=== PATIENT | male | born 2000 | race African-American/Black ===

== ENCOUNTER → 2021-02-20 00:59 | Outpatient (CLI) | payer BC, SELFPAY ==
[2021-02-21 02:02] LABS: SARS-CoV-2 RNA PCR Negative
== END ==
PROVIDERS: Visit Provider Otolaryngology
DX: Z01.812 Encounter for preprocedural laboratory examination (principal); Z20.822 Contact with and (suspected) exposure to COVID-19
CPT/HCPCS: C9803; U0003; U0005

== ENCOUNTER 2021-05-08 01:53 | Day surgery (SDC) | payer BC, SELFPAY ==
--- NOTE | 2021-05-07 08:28 | PM.IMHP ---
H&P: HPI History of Present Illness Date/Time: 05/07/21 08:28 Chief Complaint: ear keloids bilateral Narrative: patient presents for planned surgical procedure. No change in symptoms no change in medical history. Review of Systems Constitutional: Constitutional: Denies fatigue, Denies fever(s) and Denies lethargy Eyes: Eyes: Denies blurry vision and Denies change in vision ENT: Reports as per HPI Cardiovascular: Cardiovascular: Denies chest pain Respiratory: Respiratory: Denies cough Endocrine: Endocrine: Denies fatigue Hematologic/Lymphatic: Hematologic/Lymphatic: Denies easy bleeding, Denies easy bruising and Denies lymphadenopathy Allergic/Immunologic: Allergic/Immunologic: Denies seasonal rhinorrhea [facility] Past Medical History Medical History (Updated 02/23/21 @ 07:13 by Lalo Ivy DO) Asthma Surgical History Surgical History (Updated 02/23/21 @ 07:13 by Lalo Ivy DO) History of tonsillectomy Family History Family History Mother Diabetes mellitus Hypertension Grandparent Diabetes mellitus Hypertension Social History Social History Smoking status: Never smoker Second hand tobacco smoke exposure: No Alcohol intake: never Substance use: never Substance use type: does not use Spiritual care concerns: No Meds Home Medications and Allergies Home Medications Medication Instructions Recorded Confirmed Type albuterol 90 mcg INHALATION Q4-6H PRN 02/15/21 02/15/21 History Allergies Allergy/AdvReac Type Severity Reaction Status Date / Time amoxicillin AdvReac Mild RASH Verified 02/15/21 13:16 Exam Const: General: cooperative, healthy appearing, comfortable, well developed and alert HENMT: Head: normal to inspection, normocephalic and atraumatic Ears: hearing grossly normal bilaterally, external ears abnormal ( Bilateral earlobe keloids), TM's normal bilaterally and EAC's normal General nose exam: Normal external nose present, Normal nares present, No nasal polyps present, Normal nasal mucous membranes and turbinates present and Normal septum present Face and sinus: normal facial exam Mouth: Yes Normal oral and palatal mucosa present, Yes lip normal, Yes tongue normal, Yes oropharynx normal and Yes moist mucous membranes Teeth and gingiva: dentition normal and gingiva normal Throat: posterior oropharynx normal, tonsils normal and uvula midline Eyes: General: appearance normal, both eyes and all related structures Periorbital: periorbital findings normal Eyelids: eyelids normal Conjunctivae: conjunctivae normal Sclera: sclerae normal Neck: Neck: normal visual inspection, full ROM and no lymphadenopathy Thyroid: thyroid normal Lymphatic: no lymphadenopathy noted Resp: Effort & Inspection: normal respiratory effort and able to speak in complete sentences Cardio: Jugular venous distension: no JVD Neuro: Cranial nerves: Yes CN's II-XII intact bilaterally Assessment and Plan Assessment and plan (1) Cheloid of skin: Code(s): L91.0 - Hypertrophic scar Status: Acute Assessment and Plan: Plan is for the operating room for bilateral resection of earlobe keloids. Also steroid injection. Total operative time 1:00 hour. Risks were discussed in great detail the largest risk which is the regrowth of keloids and change in cosmesis. Patient voiced understanding of this risk and agreed other risks include bleeding infection damage to surrounding structures and change in cosmesis especially in the left earlobe given the size of the keloid. Patient voiced understanding of this risk as well. He understands that he will need to come back 2-3 times on a weekly interval for steroid injection.
--- NOTE | 2021-05-07 09:55 | PC.NURSE ---
Report to the Outpatient Waiting Room, entrance under the green pavilion located off [facility], at time _0800 on date __05/08/21 . OR Time: ___999 . - You and your visitor will be asked a series of questions to screen for COVID 19 for your protection. - A mask is required within the hospital. Preoperative COVID Testing Requirements: No COVID Test needed if: (proof is required; if not received patient will have Rapid Test prior to entry) - Patient has received COVID Vaccine at least 14 days prior to procedure date or - Patient has positive COVID test result within last 90 days of surgery date. COVID Test needed if above criteria is not met If not COVID vaccinated a COVID test must be conducted within 72 hours of surgery and patient is asked to isolate self from time of testing until procedure. You will go to the [facility] for your COVID testing. The [facility] is located at the corner of [address] [facility]. You will only be called if COVID results are positive and your surgeon may reschedule your elective surgery date. Patients may have clear liquids (water, carbonated beverages, clear teas, apple juice) until 3 hours prior to surgery with a maximum of 20 ounces. - No food from midnight until time of surgery - Infants may have breast milk until 4 hours before surgery, formula 6 hours prior to surgery. - Children will be allowed to drink immediately following surgery. If applicable, please bring a bottle or sippy cup to assist with drinking. Juice, water, soda, and popsicles are readily available. For infants on formula, please bring formula the day of surgery. Pacifiers are allowed. Take the following medications with a SIP of water the morning of surgery: ____INHALER IF NEEDED Medications to discontinue per physician NONE Date to take last dose Please no make-up, nail greek, hairspray, perfume, deodorant, or body powder the day of surgery. No jewelry (including any body piercings) or valuables the day of surgery, leave them at home. Please take a shower or bath the night before, or the morning of, surgery with an antibacterial soap. Wear comfortable, loose fitting clothing. Children are encouraged to wear pajamas. - Jewelry must be removed prior to entering the operating room. Rings and piercings that are not removed may be cut off. - The hospital will not accept responsibility for valuables. - Please leave all valuables, including medications, at home the day of surgery. If you are going home after surgery, a licensed trailer tank truck driver must drive you home. - NO public transportation without another adult. - We recommend that an adult stay with you for 24 hours following discharge. - We also recommend that you do not drive, make important decision, drink alcoholic beverages, or take any drugs that were not prescribed by your health care provider for at least 24 hours after your discharge time. For Pediatric surgeries, we recommend two adults accompany the child home (only one inside the building at this time). One visitor will be allowed to accompany the patient into the hospital. Patients visitor will be instructed to remain with patient at all times or leave the building. We will allow the visitor to come back to the postoperative area when patient is ready. Follow any additional instructions given to you from your surgeon. Telephone instructions given to __PATIENT and asked if any additional questions and then verbalized understanding. Patient advised to call surgeon office or pre surgery nurse liaison [phone] if any additional questions.
[2021-05-07 09:57] VITALS: BMI 20.1
[2021-05-08] VITALS (9 sets, daily range): BP systolic 107–125; BP diastolic 52–83; PULSE 57–94; RESP 16–21; TEMP 36.2–36.7; O2SAT 99–100; BMI 19.7
--- NOTE | 2021-05-08 07:10 | WPDHPUPDATE1 ---
History and Physical Update Update Date/Time: 05/08/21 07:10 History and Physical has been reviewed, including an updated exam of the patient. There are NO changes in the patient's condition. Risks, benefits, and alternatives have been discussed and questions answered. Patient agrees to proceed with procedure.
[2021-05-08] MEDS: LACTATED RINGERS 1,000 ML 30 ML IV CONT ×2 (08:47→10:20)
--- NOTE | 2021-05-08 08:50 | WPDANESEPPF ---
Anes - Initial Pre Proc Eval Procedure: Operation Date: 05/08/21 10:00 Proposed Procedures p Excision of Bilateral Ear Keloids with Steroid Injection - Rayshawn Lin MD Date/Time: 05/08/21 08:50 Surgeon: Rayshawn Lin MD Pre Op Diagnosis: bilateral ear keloids Patient Data Age: 21 Gender: M Height: 1.78 m Weight: 62.4 kg Last Vital Signs Temp 36.7 C 05/08/21 08:10 Pulse 78 05/08/21 08:10 Resp 16 05/08/21 08:10 BP 125/75 05/08/21 08:10 Pulse Ox 100 05/08/21 08:10 Allergies Allergy/AdvReac Type Severity Reaction Status Date / Time amoxicillin Allergy Mild RASH Verified 05/08/21 08:15 Home Medications Medication Instructions Recorded Confirmed Type albuterol 90 mcg INHALATION Q4-6H PRN 02/15/21 05/08/21 History Patient hx anesthesia problems: none Family hx anesthesia problems: none Results Review: All pre-operative results and documents have been reviewed as part of the pre-operative evaluation. [facility] Past Medical History Medical History Asthma Surgical History Surgical History History of tonsillectomy Family History Family History Mother Diabetes mellitus Hypertension Grandparent Diabetes mellitus Hypertension Social History Social History Smoking status: Never smoker Second hand tobacco smoke exposure: No Alcohol intake: never Substance use: never Substance use type: does not use Living arrangements: with family Spiritual care concerns: No Anes - Eval Final PreProcedure Day of Procedure 05/08/21 08:50 Patient weight: normal Heart: regular rate and rhythm Lungs: clear to auscultation Airway: Mallampati scale class II Neurological: alert and oriented Last oral intake: >/= 8 hours ASA classification: II Emergent: no Anesthetic plan: proceed Anesthesia type and monitoring: general LMA and standard monitoring Results Review: All pre-operative results and documents have been reviewed as part of the pre-operative evaluation. Informed Consent: The patient's anesthetic plan and its attendant risks and benefits were discussed with the patient/family/POA. Questions were solicited and answers provided to the satisfaction of the patient/family/POA.
[2021-05-08] MEDS: ceFAZolin 2 GM/D5W 50 ML 2 GM/50 ML BAG IVPB (09:02)
[2021-05-08] MEDS: BACITRACIN OINTMENT 15 GM TUBE 1 APPLIC TOPICAL (09:36)
--- NOTE | 2021-05-08 10:55 | W.PM.PROC2 ---
Procedure Note - Detailed Date of Procedure 05/08/21 Pre-op Diagnosis bilateral ear keloids Post-op Diagnosis same Procedure Performed Bilateral excision of earlobe keloids , bilateral injection of steroid Surgeon Rayshawn Lin MD Anesthesia general Indications see above Findings keloids significantly grown in size since my last visit with the patient several months ago pureed excise bilaterally because of the size ear lobes are not foreshortened somewhat pointed left shorter than right left partially attached to the neck. Acceptable cosmetic appearance. Description of Procedure patient identified consent verified. Patient brought operating. Time-out performed. general anesthesia induced, LMA secured.Patient prepped and draped for the aforementioned procedure Total 5 cc 1% lidocaine 1 100,000 parts epinephrine injected the bilateral earlobes at the junction of keloid in [place] non fibrous skin. Fifteen blade utilized to remove the keloids deep tissue cleaned of fibrous keloid like tissue. Ears closed using interrupted 5 0 Prolene suture. Seven on the right I believe 9-11 on the left. A total of 1 cc which was 10 mg of Decadron injected into each earlobe. Antibiotic ointment placed over the incision. Total blood loss approximately 2 cc. Patient tolerated the procedure well there no complications. Care the patient given Anesthesiology. Estimated Blood Loss 2 Pathology yes Complications No immediate complications Condition stable Disposition PACU
[2021-05-08] MEDS: fentaNYL CITRATE INJ (*CRX) 100 MCG/2 ML VIAL 25 MCG IV PUSH (11:01)
--- NOTE | 2021-05-08 13:02 | SUR.PHASEII ---
RN called Dr. Lin and he resent the antibiotic to patient's pharmacy from his office.
== END 2021-05-08 12:35 | disposition home or self-care (01) ==
PROVIDERS: Visit Provider Otolaryngology
PROC: (CPT 11442; principal; 2021-05-08 10:00)
DX: L91.0 Hypertrophic scar (principal); J45.909 Unspecified asthma, uncomplicated; Z79.51 Long term (current) use of inhaled steroids
CPT/HCPCS: 11442; 11446; 88304; A9270; J0690; J1100; J2405; J2704; J3010; J7120

== ENCOUNTER 2024-02-17 19:55 | Emergency (ER) | payer BC, SELFPAY ==
[2024-02-17 20:11] VITALS: BP 144/85; PULSE 76; RESP 16; TEMP 36.1; O2SAT 100
--- NOTE | 2024-02-17 20:22 | PC.NURSE ---
MARLEY Maddox notified of pt. and that pt. is a moderate risk. Per PA, no additional interventions at this time. Mom at bedside with pt.
--- NOTE | 2024-02-17 21:34 | PC.NURSE ---
Addendum entered by Joan Chiu RN 02/17/24 21:36: This occurred around 2100 Original Note: Pt visualized leaving with jacket walking towards waiting room by staff. Assume pt LWBS. Told by primary RN that pt was not actively SI. ERP notified.
== END 2024-02-17 21:00 | disposition left against medical advice (07) ==
LOC: ANHED 21:28
DX: R45.851 Suicidal ideations (principal)
CPT/HCPCS: 99199